=== PATIENT | female | born 1990 | race Caucasian/White ===

== ENCOUNTER 2024-03-07 09:48 | Day surgery (SDC) | payer OTHER ==
[~2024-03-07] VITALS: Ht 162.6 cm; Wt 65.8 kg
[2024-03-07 10:53] LABS: HCG,QUAL RESULT NEGATIVE (NEGATIVE)
[2024-03-07 12:24] VITALS: O2SAT 100
[2024-03-07] MEDS ORDERED: PROPOFOL 200MG/ 20ML VIAL (DIPRIVAN) IV ONE (12:42)
[2024-03-07] MEDS ORDERED: ONDANSETRON HCL 4 MG/2 ML VIAL IVP PRN (13:15)
[2024-03-07] MEDS ORDERED: HYDROmorphone 1 MG/ML INJ. CARTRIDGE IVP PRN (13:15)
[2024-03-07] MEDS ORDERED: IBUPROFEN 400 MG TABLET PO ONE (13:15)
[2024-03-07] MEDS ORDERED: METOCLOPRAMIDE HCL 10 MG/2 ML VIAL IVP PRN (13:15)
[2024-03-07 14:31] VITALS: BP_SYST 110; PULSE 58; RESP 20
== END 2024-03-07 14:50 | disposition home or self-care (01) ==
LOC: SDS 09:48 → SMU 09:49 → SDS 14:50
PROVIDERS: ATTEND Obstetrics & Gynecology
DX: T83.32XA Displacement of intrauterine contraceptive device, initial encounter (principal); N85.8 Other specified noninflammatory disorders of uterus; Z98.84 Bariatric surgery status; Y82.8 Other medical devices associated with adverse incidents
CPT/HCPCS: 87081; 58562; 84703; 88305; J2704; J7120